=== PATIENT | female | born 1965 | race Caucasian/White ===

== ENCOUNTER → 2017-01-17 | Outpatient (CLI) | payer BC ==
[2014-10-26 14:15] VITALS: BP 114/73
[~2017-01-17] MED LIST: ALBU8.5H6 INH; CLOT12CR2 TP; DULO60CA6 PO; HYDR-971 PO; IOHEXOL 240 MG/ML 50ML VIAL. PO ONE; IOHEXOL 300 MG/ML 100ML VIAL. IV ONE; OXYC-323 PO; QUET300T5 PO
--- NOTE | 2017-01-17 11:28 | KCIC ---
PROCEDURE CT abdomen pelvis with contrast. HISTORY Epigastric and left upper quadrant pain for about 2.5 months TECHNIQUE After administration of intravenous and oral contrast, CT imaging was performed of the abdomen and pelvis, multiplanar reconstruction images submitted. Exposure: One or more of the following individualized dose reduction techniques were utilized for this exam: 1. Automated exposure control. 2. Adjustment of the mA and/or kV according to patient size. 3. Use of iterative reconstruction technique. Contrast: 89 cc Omnipaque 300 COMPARISON None FINDINGS There is somewhat ground-glass 9 millimeter left lower lobe pulmonary nodule axial image 2, small more defined nodule left lower lobe up to 3 millimeters axial image 10. No focal abnormality is identified of the spleen, liver, pancreas, gallbladder. There is no adrenal nodularity. Both kidneys enhance, no hydronephrosis. Segments of more proximal small bowel are considered slightly prominent up to 3.7 centimeters in caliber, no appreciable bowel wall thickening and no discrete transition point. Appendix caliber is considered slightly prominent at 0.6-0.7 centimeters although some internal gas, no significant adjacent inflammatory type change of the appendix. There is some distention of urinary bladder. Colon is not significantly dilated. There is no free fluid or free air. There is retained stool greatest in the transverse colon. There is advanced degenerative disc disease at L5-S1 and to a somewhat lesser degree L1-2, spondylosis at the same levels. There is mild neural foramina compromise bilaterally at L5-S1. There is at least mild left lateral recess stenosis L5-S1. There are phleboliths in the bilateral pelvis. IMPRESSION 1. There is nonspecific mild dilatation of segments of the proximal small bowel although no significant bowel wall thickening or other evidence of obstruction. There is retained stool of the transverse colon. Appendix is considered slightly prominent in caliber although no other findings suggestive of acute appendicitis. 2. There is 9 millimeter left lower lobe incidental pulmonary nodule, smaller left lower lobe pulmonary nodule also present. Three month followup is recommended. 3. There is advanced degenerative disc disease at L5-S1 and to a somewhat lesser degree at L1-2. Electronically signed by: Christiano Bojorquez MD (Jan 17, 2017 11:26:51)
== END | disposition home or self-care (01) ==
LOC: KCIC CT 09:30
PROVIDERS: ATTEND Internal Medicine Gastroenterology
DX: R10.13 Epigastric pain (principal); R10.12 Left upper quadrant pain
CPT/HCPCS: 74177; Q9966; Q9967

== ENCOUNTER → 2017-01-30 | Day surgery (SDC) | payer BC ==
[~2017-01-30] MED LIST changes: -IOHEXOL 240 MG/ML 50ML VIAL. PO ONE; -IOHEXOL 300 MG/ML 100ML VIAL. IV ONE; +IPRATRPIUM/ALBUTEROL 0.5/2.5MG 3 ML NEBU. NEB ONE; +IPRATRPIUM/ALBUTEROL 0.5/2.5MG 3 ML NEBU. ONE; +IV RINGERS,LACTATED 1000ML 1,000 ML IV SCH; +LIDOCAINE 2% PF Vial for OR 5 ML VIAL. ONE; +PROPOFOL 60 ML IV ONE
[2017-01-30 08:27] VITALS: BP 103/67
--- NOTE | 2017-01-31 12:48 | PATHOLOGY ---
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 COMMENT: Sections of the distal esophageal biopsy reveal segments of hyperplastic squamous esophageal mucosa, one of which has contiguous columnar-lined mucosa showing intestinal metaplasia with goblet cells and mild chronic inflammation consistent with Govea's change. There is no dysplasia or evidence of malignancy. The squamous esophageal mucosa shows focal increased intraepithelial eosinophils. The differential diagnosis of esophagitis with eosinophils includes reflux esophagitis, "pill esophagitis", and eosinophilic esophagitis. There are focally between 20 to 30 intraepithelial eosinophils per high power field suggestive of eosinophilic esophagitis. Correlate clinically. (JPM:csd; d/t: 01/31/2017) REPORT ELECTRONICALLY SIGNED BY: Audi Layne M.D. DATE/TIME: 01/31/2017 12:47 * * * * * * * * GROSS PATHOLOGY: Received in formalin labeled "Stephanie Lala, distal esophagus biopsy," are 4 segments of vazquez soft tissue measuring 0.8 x 0.5 x 0.3 cm in aggregate dimensions and ranging from 0.3 to 0.5 cm in maximum dimension. The specimen is submitted entirely in cassette A1. (KAH; 01/30/2017) INITIAL CPT CODE(S): A; 20687 Professional services performed by [employer] at [address] [address] Technical services performed by [employer] at [address] [place] [address]. SPECIMEN(S) RECEIVED: A.Distal esophagus biopsy CLINICAL HISTORY: Abdominal pain PATIENT: STEPHANIE LALA /AGE: 706/16/1965 (Age: 51) PATIENT #: [id number] ALT CASE #: SPECIMEN COLLECTION DATE: 01/30/2017 SPECIMEN RECEIVED DATE: 01/30/2017 [facility] [place] [address] - PHONE: [phone] * * * END OF REPORT * * *
== END | disposition home or self-care (01) ==
LOC: ENDOS 05:51 → EDSEX 07:00
PROVIDERS: ATTEND Internal Medicine Gastroenterology
DX: Z12.11 Encounter for screening for malignant neoplasm of colon (principal); K64.0 First degree hemorrhoids; K57.30 Diverticulosis of large intestine without perforation or abscess without bleeding; Z80.0 Family history of malignant neoplasm of digestive organs; K29.50 Unspecified chronic gastritis without bleeding; K21.0 Gastro-esophageal reflux disease with esophagitis; I20.9 Angina pectoris, unspecified; J45.909 Unspecified asthma, uncomplicated; Z98.52 Vasectomy status; F31.9 Bipolar disorder, unspecified
CPT/HCPCS: 43239; 45378; 94640; J2704; J7620; 88305

== ENCOUNTER → 2017-03-01 | Outpatient (CLI) | payer BC ==
[2017-01-30 08:27] VITALS: BP 103/67
[~2017-03-01] MED LIST changes: -IPRATRPIUM/ALBUTEROL 0.5/2.5MG 3 ML NEBU. NEB ONE; -IPRATRPIUM/ALBUTEROL 0.5/2.5MG 3 ML NEBU. ONE; -IV RINGERS,LACTATED 1000ML 1,000 ML IV SCH; -LIDOCAINE 2% PF Vial for OR 5 ML VIAL. ONE; -PROPOFOL 60 ML IV ONE
--- NOTE | 2017-03-01 11:14 | KCIC ---
CT chest without contrast Indication: Left lower lobe nodules noted on recent CT abdomen and pelvis. The study is performed for further evaluation. Axial imaging through the chest was performed without intravenous contrast. PQRS STATEMENT One or more of the following individualized dose reduction techniques were utilized for this study: 1.Automated exposure control. 2.Adjustment of the mA and/orkVaccording to patient size. 3.Use of iterative reconstruction technique. Comparison is made with prior CT from 01/17/2017. No axillary lymphadenopathy is seen. No definite hilar or mediastinal lymphadenopathy is detected, however, evaluation is limited without intravenous contrast. No pericardial or pleural fluid is identified. The previously noted ground-glass opacity in the left lower lobe is no longer present. The tiny 3 millimeter nodule posterior lateral left lower lobe is stable. No new mass is seen. No other parenchymal abnormality is detected. Impression: Resolution of previously noted ground-glass density left lower lobe with stable 2nd well-defined nodule. Electronically signed by: Jaskaran Krishna MD (Mar 01, 2017 11:14:01)
== END | disposition home or self-care (01) ==
LOC: KCIC CT 09:59
PROVIDERS: ATTEND Internal Medicine Pulmonary Disease
DX: R91.1 Solitary pulmonary nodule (principal)
CPT/HCPCS: 71250

== ENCOUNTER 2017-06-17 17:51 | Emergency (ER) | payer BC ==
[~2017-06-17] VITALS: Ht 165.1 cm; Wt 68.9 kg
[2017-06-17 18:14] VITALS: BP 132/73
[2017-06-17] MEDS ORDERED: DIPHTH,PERTUSS(ACELL),TET TOX 0.5 ML DISP.SYRIN. VAX IM ONE (18:45)
[2017-06-17] MEDS ORDERED: HYDROcodone/APAP 5/325MG 1 TAB TABLET PO ONE (18:45)
[2017-06-17] MEDS ORDERED: HYDR-971 PO (19:37)
--- NOTE | 2017-06-17 19:37 | PHYS DOC ---
Past Medical History Past Medical History: No Pertinent History Past Surgical History: Other Additional Past Surgical Histo: LEFT SHOULDER Alcohol Use: Occasionally Drug Use: None Adult General Chief Complaint Chief Complaint: EARACHE/EAR PAIN HPI HPI Patient is a 52 year old male who presents with a foreign object in the right ear. Patient states he was picking some wood yesterday when a tree limb hit him on his right side of the face. He believes a piece of wood entered his right ear. Patient's denies any hearing loss. Review of Systems Review of Systems Constitutional: Denies fever or chills [] Eyes: Denies change in visual acuity, redness, or eye pain [] HENT: right ear pain Respiratory: Denies cough or shortness of breath [] Cardiovascular: No additional information not addressed in HPI [] Musculoskeletal: Denies back pain or joint pain [] Integument: Denies rash or skin lesions [] Neurologic: Denies headache, focal weakness or sensory changes [] Current Medications Current Medications Current Medications Medications (Trade) Dose Ordered Sig/Isacc Start Time Stop Time Status Last Admin Dose Admin Acetaminophen/ Hydrocodone Bitart (Lortab 5/325) 2 tab 1X ONCE 06/17/17 18:45 06/17/17 18:46 DC 06/17/17 19:00 2 TAB Diphtheria/ Tetanus/Acell Pertussis (Boostrix) 0.5 ml ONCE ONCE 06/17/17 18:45 06/17/17 18:46 DC 06/17/17 19:01 0.5 ML Allergies Allergies Allergies Coded Allergies Type Severity Reaction Last Updated Verified peanut Allergy Severe Swelling 01/30/17 Yes Physical Exam Physical Exam Constitutional: Well developed, well nourished, no acute distress, non-toxic appearance. [] HENT: Normocephalic, atraumatic, bilateral external ears normal, oropharynx moist, no oral exudates, nose normal. [] Right ear canal has a foreign object suspicious of a tiny tree limb piece. The limb is deep in the ear canal. Cardiovascular:Heart rate regular rhythm, no murmur [] Lungs & Thorax: Bilateral breath sounds clear to auscultation [] Skin: Warm, dry, no erythema, no rash. [] Extremities: No tenderness, no cyanosis, no clubbing, ROM intact, no edema. [] Neurologic: Alert and oriented X 3, normal motor function, normal sensory function, no focal deficits noted. [] Psychologic: Affect normal, judgement normal, mood normal. [] Current Patient Data Vital Signs Vital Signs Date Time Temp Pulse Resp B/P (MAP) Pulse Ox O2 Delivery O2 Flow Rate FiO2 06/17/17 19:00 16 99 Room Air 06/17/17 18:14 98.0 78 98.0 EKG EKG [] Radiology/Procedures Radiology/Procedures [] Course & Med Decision Making Course & Med Decision Making Pertinent Labs and Imaging studies reviewed. (See chart for details) Patient has a tiny tree limb piece in the right ear canal that we could not retrieved in the ED. It's been there since yesterday. He his tetanus was updated and he was given instructions to contact ENT tomorrow and set up a follow-up appointment to have them remove it. midlevel chart read and reviewed...morgan Rouse Disclaimer Dragon Disclaimer This electronic medical record was generated, in whole or in part, using a voice recognition dictation system. Departure Departure Impression: Primary Impression: Foreign body of ear, right Disposition: 01 HOME, SELF-CARE Condition: STABLE Referrals: KARL CLEARY MD (PCP) Call [facility] tomorrow and ask an appointment with ENT phone number is [phone] Patient Instructions: Ear Foreign Body, [id number] Additional Instructions: You have the foreign body to the right ear canal. Follow-up with ENT by calling [facility] tomorrow for follow-up appointment. Scripts Hydrocodone/Apap 5-325 (NORCO 5-325 TABLET) 1 Each Tablet 1 TAB PO PRN Q6HRS Y for PAIN, #14 TAB 0 Refills Prov: FRANCINE SETHI APRN 06/17/17 Problem Qualifiers Primary Impression: Foreign body of ear, right Encounter type: initial encounter Qualified Codes: T16.1XXA - Foreign body in right ear, initial encounter FRANCINE SETHI APRN Jun 17, 2017 19:37 TOBIAS SPENCER MD Jun 17, 2017 20:03
== END 2017-06-17 20:05 | disposition home or self-care (01) ==
LOC: ER 17:51
DX: S00.451A Superficial foreign body of right ear, initial encounter (principal); Z91.010 Allergy to peanuts; Y93.89 Activity, other specified; Y99.8 Other external cause status; Y92.89 Other specified places as the place of occurrence of the external cause
CPT/HCPCS: 90471; 90715; 99283-25